=== PATIENT | female | born 1980 | race Hispanic/Latino ===

== ENCOUNTER 2017-04-08 10:59 | Outpatient (CLI) | payer OTHER | END 2017-04-08 11:00 | disposition home or self-care (01) | LOC: DTY/OP 10:59 | PROVIDERS: ATTEND Specialist | DX: Z01.818 Encounter for other preprocedural examination (principal); E66.01 Morbid (severe) obesity due to excess calories | CPT/HCPCS: 97802 ==

== ENCOUNTER 2017-04-27 15:30 | Inpatient (IN) | payer OTHER ==
[2017-05-03] MEDS ORDERED: cefOXitin 2 GM, Syringe 1 ML in Sterile Water 10 ML SLOW IVP SCH (06:30)
[2017-05-03] MEDS ORDERED: Ketorolac Tromethamine 30 MG/ML VIAL ONE (06:42)
[2017-05-03] MEDS ORDERED: Scopolamine 1.5 mg/72 hour Patch ONE (06:42)
[2017-05-03] MEDS ORDERED: Heparin 5,000 UNITS/ML VIAL ONE (06:42)
[2017-05-03] MEDS ORDERED: Fentanyl 100 MCG/2 ML VIAL ONE ×2 (06:48→12:26)
[2017-05-03] MEDS ORDERED: Bupivacaine 0.25% HCL 30 ML VIAL ONE (06:54)
[2017-05-03] MEDS ORDERED: Lidocaine 2% w/Epinephrine 1:200K 20 ML VIAL ONE (06:54)
[2017-05-03] MEDS ORDERED: Midazolam HCl 2 mg/2 ml Vial ONE (07:20)
[2017-05-03] MEDS ORDERED: Promethazine HCl 25 MG/ML VIAL SLOW IVP PRN (08:26)
[2017-05-03] MEDS ORDERED: Promethazine HCl 25 MG/ML VIAL IM PRN ×2 (08:26→12:30)
[2017-05-03] MEDS ORDERED: Meperidine HCl/PF 25 MG/ML VIAL SLOW IVP PRN (08:26)
[2017-05-03] MEDS ORDERED: HYDROmorphone 2 MG/ML VIAL SLOW IVP PRN (08:26)
[2017-05-03] MEDS ORDERED: Promethazine HCl 25 MG/ML VIAL ONE (09:32)
[2017-05-03] MEDS ORDERED: D5 1/2 NS w/20 mEq KCL 1,000 ML ONE (12:28)
[2017-05-03] MEDS ORDERED: hydrALAZINE 20 MG/ML VIAL SLOW IVP PRN (12:30)
[2017-05-03] MEDS ORDERED: Ondansetron HCl/PF 4 MG/2 ML Vial IVP PRN (12:30)
[2017-05-03] MEDS ORDERED: Dextrose 5% in Water 1,000 ML IV PRN (12:30)
[2017-05-03] MEDS ORDERED: diphenhydrAMINE 50 MG/ML VIAL IVP PRN (12:30)
[2017-05-03] MEDS ORDERED: Morphine 5 MG/ML SYRINGE SLOW IVP PRN (12:30)
[2017-05-03] MEDS ORDERED: Dextrose 50% Abboject 50 ML SYRINGE SLOW IVP PRN (12:30)
[2017-05-03] MEDS ORDERED: Hydrocodone-Acetamin 15 ML UDCUP PO PRN (12:30)
[2017-05-03] MEDS: D5 1/2 NS w/20 mEq KCL 1,000 ML IV SCH ×2 (13:25→20:23)
[2017-05-03] MEDS: Ketorolac Tromethamine 30 MG/ML VIAL IVP SCH ×3 (13:29→23:00)
[2017-05-03 14:14] VITALS: BMI 37.7
[2017-05-03] MEDS ORDERED: Ondansetron HCl/PF 4 MG/2 ML Vial ONE (16:44)
[2017-05-03] MEDS ORDERED: Dexamethasone 20 MG/5 ML VIAL ONE (16:44)
[2017-05-03] MEDS ORDERED: Lidocaine 1% PF 5 ML VIAL ONE (16:44)
[2017-05-03] MEDS ORDERED: Glycopyrrolate 0.2 MG/ML 5 ML SYRINGE ONE (16:44)
[2017-05-03] MEDS ORDERED: Propofol 200 MG/20 ML VIAL ONE (16:44)
[2017-05-03] MEDS ORDERED: Labetalol 100 MG/20 ML MDV ONE (16:44)
[2017-05-03] MEDS ORDERED: Enoxaparin Sodium 40 MG/0.4 ML SYRINGE SC SCH (21:00)
[2017-05-04] MEDS: D5 1/2 NS w/20 mEq KCL 1,000 ML IV SCH ×2 (03:33→12:24)
[2017-05-04 04:46] LABS: #Lymphocytes 1.4 thou/uL (1.20-3.40); #Neutrophils 8.7 thou/uL (1.40-6.50); %Basophils 0.3 % (0.0-1.0); %Eosinophils 0.1 % (0.0-10.0); %Lymphocytes 12.4 % (21.0-51.0); %Neutrophils 78.2 % (42.0-75.0); Hemoglobin 13.1 g/dL (12.0-16.0); Mean Corpuscular HGB CONC 33.5 g/dL (32.0-36.0); Mean Corpuscular Hemoglobin 30.8 pg (27.0-31.0); Mean Platelet Volume 8.8 fL (7.4-10.4); Platelet Count 321 thou/uL (130-400); RBC Distribution Width 12.1 % (11.5-14.5); Red Blood Cell (RBC) Count 4.26 mill/uL (4.20-5.40); White Blood Cell (WBC) Count 11.1 thou/uL (4.8-10.8)
[2017-05-04 04:52] LABS: Anion Gap 10 mmol/L (10-20); BUN (Urea Nitrogen) 6 mg/dL (7.0-18.7); Calc. Creatinine Clearance 192 mL/min (70-130); Calcium 8.5 mg/dL (7.8-10.44); Carbon Dioxide 25 mmol/L (22-29); Chloride 109 mmol/L (98-107); Estimated GFR-MDRD Greater than 90; Glucose 147 mg/dL (70-105); Potassium 3.8 mmol/L (3.5-5.1); Sodium 140 mmol/L (136-145)
[2017-05-04] MEDS: Ketorolac Tromethamine 30 MG/ML VIAL IVP SCH ×2 (05:00→11:32)
--- NOTE | 2017-05-04 07:43 | OP ---
DATE OF PROCEDURE: 05/03/2017 PREOPERATIVE DIAGNOSIS: Morbid obesity. POSTOPERATIVE DIAGNOSIS: Morbid obesity. OPERATION PERFORMED: Laparoscopic vertical sleeve gastrectomy. SURGEON: Colton Siegel M.D. ANESTHESIA: General endotracheal. INDICATIONS: The patient is a 37-year-old female. She has a BMI of 40. She presents at th is time for laparoscopic sleeve gastrectomy, having completed preoperative evaluation and education. OPERATIVE PROCEDURE IN DETAIL: Informed consent was obtained. The patient was taken to the operatin g room where general endotracheal anesthesia was obtained with the patient in supine position. Abdom en was clipped of hair, prepped with ChloraPrep, and draped in sterile fashion. Local anesthetic was infiltrated using 0.25% Marcaine with epinephrine and a 5 mm supraumbilical incision was created thr ough which a Veress needle was passed into the peritoneal cavity and pneumoperitoneum established usi ng carbon dioxide up to a pressure of 15 mmHg. A 5 mm trocar port was passed through this same incis ion. Laparoscopic camera was passed through this port. Under direct vision, 4 additional laparoscop ic ports were placed including bilateral subcostal 5 mm ports, a right paramedian 12 mm port, and a l eft paramedian 15 mm port. A 5 mm epigastric incision was created through which Nathansen retractor was passed into the abdominal cavity and used to retract the left lobe of the liver. The pylorus was identified. Beginning 5 cm proximal to the pylorus, the omental and vascular tissue was dissected away from the greater curvature of the stomach in an ascending fashion using the LigaSu re device. Hemostasis was maintained. The short gastric vessels were divided in a similar fashion. Posterior gastric adhesions were divided as well. The angle of His was mobilized and the left katie of the diaphragm was dissected as well. Once complete gastric mobilization was obtained, a 36 Iranian bougie was passed by Anesthesia through the stomach down to the level of the pylorus. This was used as a guide for the subsequent gastrectom y. The gastrectomy was performed using several firings of the [place] stapler, initially using a gre en load followed by a gold load and a series of blue loads to complete the resection. Great care was taken to avoid narrowing of the incisura or the gastroesophageal junction. Once the stomach was com pletely transected, the excised portion was removed through the 15 mm port site. The fascia was clos ed at that location using a [id number] suture of 0 Vicryl using a GraNee needle. From above, an esophagogastroduodenoscopy was performed, passing the scope through the stomach to the level of the pylorus. There was no evidence of intraluminal bleeding or stricture formation. There was no air leak along the staple line as it was inspected under water. The intraluminal air was rem bo and the scope was removed as well. The staple line was inspected for hemostasis. Hemostasis obtained using electrocautery and/or Hemocl ips as necessary. All irrigant from within the abdomen was aspirated. The Nathansen retractor and a ll ports were removed under direct vision. Pneumoperitoneum was carefully evacuated. Quarter percen t Marcaine with epinephrine was infiltrated in each port site and skin edges approximated with 4-0 Mo nocryl subcuticular suture. Dermabond was placed externally. There were no complications. The jesus ent tolerated the procedure well and was taken to recovery room in stable condition. FINDINGS: There was no abnormal intra-abdominal anatomy. The operation was performed safely without any significant blood loss. Endoscopy at the end of the case was uneventful as well. Several Hemoc lips were placed along the staple line to ensure staple line hemostasis. The patient tolerated the p rocedure well and was taken to recovery in stable condition.
[2017-05-04] MEDS ORDERED: Pantoprazole 40 MG VIAL IVP SCH (09:00)
[2017-05-04 11:46] VITALS: BP 106/68; TEMP 98.2
== END 2017-05-04 14:25 | disposition home or self-care (01) | DRG 621 ==
LOC: SURG A 05-03 06:02
PROVIDERS: ADMIT Specialist; ATTEND Specialist
PROC: 0DB64Z3 Excision of Stomach, Percutaneous Endoscopic Approach, Vertical (ICD-10-PCS; principal; 2017-05-03)
PROC: 0DJ08ZZ Inspection of Upper Intestinal Tract, Via Natural or Artificial Opening Endoscopic (ICD-10-PCS; 2017-05-03)
DX: E66.01 Morbid (severe) obesity due to excess calories (principal); I83.90 Asymptomatic varicose veins of unspecified lower extremity; Z68.41 Body mass index [BMI] 40.0-44.9, adult
CPT/HCPCS: 36415; 80048; 85025; 88307; 88312; 93005; 93010; 94760; A4216; C9113; J0131; J0694; J1100; J1644; J1650; J1885; J2001; J2250; J2405; J2550; J2704; J3010; S0020

== ENCOUNTER 2017-04-27 15:40 | Outpatient (CLI) | payer OTHER | END 2017-04-27 15:41 | disposition home or self-care (01) | LOC: LABBT 15:40 | PROVIDERS: ATTEND Specialist | DX: Z01.810 Encounter for preprocedural cardiovascular examination (principal); E66.01 Morbid (severe) obesity due to excess calories | CPT/HCPCS: 93005; 93010 ==

== ENCOUNTER 2017-12-15 13:03 | Outpatient (CLI) | payer OTHER ==
--- NOTE | 2017-12-15 16:37 | ULT ---
LEFT BREAST ULTRASOUND: Date: 12/15/17 HISTORY: Palpable mass at 9 o'clock position left breast. FINDINGS: Correlation is made with mammograms from same date. There is a 2.0 cm cyst at the site of palpable concern in the 9 o'clock position of the left breast, corresponding to the mammographic finding. IMPRESSION: BIRADS 2: Benign Finding(s) Age-appropriate screening based on risk factors is recommended. POS: [facility]
== END 2017-12-15 13:04 | disposition home or self-care (01) ==
LOC: BICMAMMO 13:03
PROVIDERS: ATTEND Family Medicine
DX: N63.20 Unspecified lump in the left breast, unspecified quadrant (principal)
CPT/HCPCS: 77066; G0279

== ENCOUNTER 2022-02-21 13:48 | Observation (INO) | payer BC ==
[2022-02-21 14:30] LABS: Hemoglobin 13.4 g/dL (12.0-16.0); Mean Corpuscular HGB CONC 34.4 g/dL (32.0-36.0); Mean Corpuscular Hemoglobin 31.2 pg (27.0-31.0); Mean Corpuscular Volume 90.7 fl (78.0-98.0); Mean Platelet Volume 8.3 fL (7.4-10.4); Platelet Count 303 10x3/uL (130-400); RBC Distribution Width 14.9 % (11.5-14.5); Red Blood Cell (RBC) Count 4.29 mill/uL (4.20-5.40); White Blood Cell (WBC) Count 26.5 10x3/uL (4.8-10.8)
[2022-02-21 14:43] LABS: Band 10 % (5-11); Lymphocytes 3 % (21-51); MDiff Complete? YES; Monocytes 4 % (0-10); Neutrophil 83 % (42-75); Platelet Morphology Comment Appears Adequate; RBC Morphology Normal
[2022-02-21 14:48] LABS: ALT (SGPT) 16 U/L (8-55); AST (SGOT) 15 U/L (5-34); Alkaline Phosphatase 74 U/L (40-110); Anion Gap 14 mmol/L (10-20); BUN (Urea Nitrogen) 8 mg/dL (7.0-18.7); Bilirubin, Total 1.1 mg/dL (0.2-1.2); Calc. Creatinine Clearance 0 mL/min (70-130); Calcium 8.9 mg/dL (7.8-10.44); Carbon Dioxide 23 mmol/L (22-29); Chloride 102 mmol/L (98-107); Estimated GFR 108; Glucose 128 mg/dL (70-105); Lipase 17 U/L (8-78); Potassium 3.8 mmol/L (3.5-5.1); Sodium 135 mmol/L (136-145)
[2022-02-21] MEDS ORDERED: Piperacillin/Tazobactam 3.375 GM VIAL ONE (15:47)
[2022-02-21] MEDS ORDERED: Ketorolac Tromethamine 30 MG/ML VIAL ONE (15:47)
[2022-02-21] MEDS ORDERED: Ondansetron PF 4 MG/2 ML Vial ONE (15:47)
[2022-02-21 18:03] LABS: Bacteria/HPF None Seen HPF (None Seen); Bilirubin Negative (Negative); Blood, Urine Trace (Negative); Clarity Clear (Clear); Glucose, Urine (Dipstick) Normal (Negative); Ketone, Urine 10 mg/dL (Negative); Leukocyte 25 Leu/uL (Negative); Nitrite Negative (Negative); Protein, Urine (Dipstick) Negative (Neg-Trace); RBC/HPF 0-3 HPF (0-3); Squamous Epithelial 0-3 HPF (0-3); Urobilinogen Normal mg/dL (Less than 2); WBC/HPF 0-3 HPF (0-3)
[2022-02-21 18:04] LABS: Pregnancy Test - Urine (BHCG) Negative (Negative); Pregu Control Background? CLEAR/WHITE (CLR/WHITE); Pregu Control Bar Appear? YES (CONTROL BAR)
[2022-02-21 18:51] VITALS: BMI 28.3
[2022-02-21] MEDS: Piperacillin/Tazobactam 3.375 GM in Sodium Chloride 0.9% 100 ML IVPB SCH (20:34)
[2022-02-21] MEDS: Morphine 4 MG/ML VIAL SLOW IVP PRN (20:35)
[2022-02-21] MEDS: Sodium Chloride 0.9% 1,000 ML IV SCH (20:43)
[2022-02-22] MEDS: Piperacillin/Tazobactam 3.375 GM in Sodium Chloride 0.9% 100 ML IVPB SCH (04:21)
[2022-02-22] MEDS: Morphine 4 MG/ML VIAL SLOW IVP PRN (04:29)
[2022-02-22] MEDS: Sodium Chloride 0.9% 1,000 ML IV SCH (04:30)
[2022-02-22 09:47] LABS: SARS-CoV-2 NAA Rapid Test Not Detected (NotDetected)
[2022-02-22] MEDS ORDERED: Scopolamine 1.5 mg/72 hour Patch ONE (11:59)
[2022-02-22] MEDS ORDERED: Ketorolac Tromethamine 30 MG/ML VIAL ONE (11:59)
[2022-02-22] MEDS ORDERED: Bupivacaine HCl 0.5%/Epinephrine 1:200,000/PF 30 ml Vial ONE (13:14)
[2022-02-22] MEDS ORDERED: fentaNYL PF 100 MCG/2 ML SYRINGE ONE (13:18)
[2022-02-22] MEDS ORDERED: Ondansetron PF 4 MG/2 ML Vial ONE (13:32)
[2022-02-22] MEDS ORDERED: Dexamethasone 20 MG/5 ML VIAL ONE (13:32)
[2022-02-22] MEDS ORDERED: Rocuronium Bromide 10 MG/ML (10ML VIAL) ONE (13:32)
[2022-02-22] MEDS ORDERED: GLYCOPYRROLATE/PF 0.2 MG/ML VIAL ONE (13:32)
[2022-02-22] MEDS ORDERED: NEOSTIGMINE 3 MG/3 ML SYR 3 MG/3 ML SYRINGE ONE (13:32)
[2022-02-22] MEDS ORDERED: Phenylephrine 10 MG/ML VIAL ONE (13:32)
[2022-02-22] MEDS ORDERED: PROPOFOL 200 MG/20 ML VIAL ONE (13:32)
[2022-02-22] MEDS ORDERED: Levofloxacin 500 mg/D5W 100 ml Premix Bag ONE (13:49)
[2022-02-22] MEDS ORDERED: Acetaminophen 500 MG TAB PO PRN (14:24)
[2022-02-22] MEDS ORDERED: traMADol HCl 50 MG TAB PO PRN (14:24)
[2022-02-22] MEDS ORDERED: Ibuprofen 600 MG TAB PO PRN (14:24)
[2022-02-22] MEDS ORDERED: Acetaminophen 500 MG TAB PO SCH (14:30)
[2022-02-22] MEDS ORDERED: FENTANYL 50 MCG/ML 1 ML VIAL ONE (14:44)
[2022-02-22 15:30] VITALS: BP 114/75; TEMP 99
== END 2022-02-22 16:45 | disposition home or self-care (01) ==
LOC: ERS 13:48 → SJJU 17:15
PROVIDERS: ADMIT Specialist; ATTEND Specialist
PROC: 0FT44ZZ Resection of Gallbladder, Percutaneous Endoscopic Approach (ICD-10-PCS; principal; 2022-02-22)
DX: K80.12 Calculus of gallbladder with acute and chronic cholecystitis without obstruction (principal); K82.1 Hydrops of gallbladder; Z98.84 Bariatric surgery status; Z20.822 Contact with and (suspected) exposure to COVID-19
CPT/HCPCS: 36415; 76705; 80053; 81003; 81015; 81025; 83605; 83690; 85025; 87040; 88304; 96374; 96375; 96376; C1889; G0378; J1100; J1885; J1956; J2270; J2370; J2405; J2543; J2704; J3010; J3490; J7050; U0002

== ENCOUNTER 2022-11-16 13:08 | Outpatient (CLI) | payer BC | END 2022-11-16 13:09 | disposition home or self-care (01) | LOC: BICMAMMO 13:08 | PROVIDERS: ATTEND Family Medicine | DX: Z12.31 Encounter for screening mammogram for malignant neoplasm of breast (principal) | CPT/HCPCS: 77063; 77067 ==

== ENCOUNTER 2024-10-24 14:42 | Outpatient (CLI) | payer BC | END 2024-10-24 14:43 | disposition home or self-care (01) | LOC: BICMAMMO 14:42 | PROVIDERS: ATTEND Family Medicine | DX: Z12.31 Encounter for screening mammogram for malignant neoplasm of breast (principal) | CPT/HCPCS: 77063; 77067 ==